=== PATIENT | female | born 1995 | race Caucasian/White ===

== ENCOUNTER 2022-08-17 13:13 | Outpatient (CLI) | payer OTHER ==
[2022-08-22] MEDS ORDERED: SYNTHROID100 MCG PO (09:02)
== END 2022-08-17 14:25 | disposition home or self-care (01) ==
LOC: PRENATAL 13:13
PROVIDERS: ATTEND Obstetrics & Gynecology Maternal & Fetal Medicine
DX: O35.9XX0 Maternal care for (suspected) fetal abnormality and damage, unspecified, not applicable or unspecified (principal); O35.3XX0 Maternal care for (suspected) damage to fetus from viral disease in mother, not applicable or unspecified; O99.280 Endocrine, nutritional and metabolic diseases complicating pregnancy, unspecified trimester; Z3A.23 23 weeks gestation of pregnancy

== ENCOUNTER 2025-06-22 12:08 | Outpatient (CLI) | payer OTHER ==
[~2025-06-22 12:08] MED LIST: SYNTHROID100 MCG PO
== END 2025-06-22 12:09 | disposition home or self-care (01) ==
LOC: PRENATAL 12:08
PROVIDERS: ATTEND Obstetrics & Gynecology Maternal & Fetal Medicine
DX: O44.00 Complete placenta previa NOS or without hemorrhage, unspecified trimester (principal); O26.879 Cervical shortening, unspecified trimester; Z3A.22 22 weeks gestation of pregnancy

== ENCOUNTER → 2025-07-20 15:08 | Outpatient (CLI) | payer OTHER | END | disposition home or self-care (01) | LOC: PRENATAL 15:08 | PROVIDERS: ATTEND Obstetrics & Gynecology Maternal & Fetal Medicine | DX: O26.849 Uterine size-date discrepancy, unspecified trimester (principal); O26.879 Cervical shortening, unspecified trimester; O99.280 Endocrine, nutritional and metabolic diseases complicating pregnancy, unspecified trimester; Z3A.26 26 weeks gestation of pregnancy ==